=== PATIENT | female | born 1970 | race Caucasian/White ===

== ENCOUNTER 2023-01-03 01:49 | Emergency (ER) | payer BC, OTHER ==
[2023-01-03] MEDS ORDERED: Aspirin 81 MG Tab.Chew PO ONE (02:03)
[2023-01-03] MEDS ORDERED: Morphine 4 MG/ML Syringe IVPUSH PRN (02:03)
[2023-01-03] MEDS ORDERED: Nitroglycerin 0.4 MG Tab.SL SL PRN (02:03)
[2023-01-03] MEDS ORDERED: Ondansetron 4 MG Tab.DIS PO ONE (02:05)
[2023-01-03 02:37] LABS: ESTIMATED GFR 89 mL/min (>60); TROPONIN I HIGH SENSITIVITY 8.7 pg/mL (<=60.3)
[2023-01-03] MEDS ORDERED: Alum Hydrox/Mag Hydrox/Simeth 15 ML, Lidocaine 2% 15 ML PO ONE ×2 (02:42)
== END 2023-01-03 04:45 | disposition home or self-care (01) ==
LOC: JP.ED 01:49
DX: R07.89 Other chest pain (principal)
CPT/HCPCS: 36415; 71045; 80053; 83690; 84484; 85025; 93005; 99285; A9270; Q0162; 93010; 99283